=== PATIENT | male | born 1990 | race Caucasian/White ===

== ENCOUNTER 2016-08-30 05:08 | Day surgery (SDC) | payer OTHER ==
[~2016-08-30] VITALS: Ht 172.7 cm; Wt 120.2 kg
--- NOTE | ~2016-08-30 | O ---
[facility] [place] [address] OPERATIVE REPORT Name: TIMOTHYMAMTAJODY OLIVAS Room #: DEP [facility].#: [id number] Admission: 08/30/16 Attend Phys: Guero Bonner MD Discharge: 08/30/16 Date of : 86 Report #: [id number] THIS REPORT FOR: //name// CC: [facility] physician/PCP Guero Bonner DATE OF SERVICE: 08/30/2016 PREOPERATIVE DIAGNOSIS: Deviated nasal septum with nasal airway obstruction. POSTOPERATIVE DIAGNOSIS: Deviated nasal septum with nasal airway obstruction. OPERATIVE PROCEDURE: Nasal septoplasty. ANESTHESIA: General by laryngeal mask. DESCRIPTION OF PROCEDURE: The patient was taken to the operating room and placed in a supine position. General anesthesia was induced by laryngeal mask. Once adequate general anesthesia was obtained, local nasal anesthesia was induced by submucoperichondrial injection of 1% lidocaine with 1:100,000 epinephrine and topical application of cocaine solution. The patient was then draped in a sterile manner. The patient had a nasal septal deviation with the anterior cartilaginous septum protruding into the left nasal cavity and almost completely blocking that side of the nose. There was deviation along the floor and posteriorly to the right. A hemitransfixion incision was placed on the left side of the nose. The mucoperichondrium and mucoperiosteum was elevated off of the right side of the septum. The cartilage was incised along the floor, along the spur and then backwards towards the bony cartilaginous junction. A portion of cartilage and bone was removed from the midportion of the septum. The septal spur along the floor consisting of hypertrophic cartilage, which was removed as a long strip in the maxillary crest, which was rongeured and infractured. The anterior cartilaginous septum was then elevated off of the opposite side and a columellar pocket was created anteriorly. The anterior aspect of the cartilaginous septum was then fit into the columellar pocket. The hemitransfixion was closed with 4-0 chromic suture and a 4-0 plain mattress suture was placed as well. There was an excellent airway on both sides. The patient tolerated the procedure well. Blood loss was approximately 50 mL. The patient was then awoken to the recovery room in stable condition for postoperative monitoring. <ELECTRONICALLY SIGNED> By: Guero Bonner MD 09/13/16 1637 [id number] Guero Bonner MD /nt
--- NOTE | ~2016-08-30 | H ---
[facility] [place] [address] HISTORY AND PHYSICAL Name: ELMA AGUIRRE Room #: 150-10 [facility] M.R.#: [id number] Admission: 08/30/16 Attend Phys: Guero Bonner MD Discharge: Date of : 86 Report #: [id number] THIS REPORT FOR: //name// CC: [facility] physician/PCP Guero Bonner DATE OF SERVICE: 08/30/2016 HISTORY OF PRESENT ILLNESS: The patient has nasal airway obstruction and a deviated nasal septum. He has great difficulty breathing through his nose and has a lot of postnasal drainage. He has also had a feeling that there is something stuck in the back of his throat, most likely secondary to swelling from postnasal drainage. PAST MEDICAL HISTORY: Otherwise, significant for asthma. MEDICATION: Only medication is gabapentin. ALLERGIES: He has no known drug allergies. PHYSICAL EXAMINATION: He has a severely deviated nasal septum to the right side with the septum actually touching the lateral wall of the nose. The anterior cartilaginous septum protrudes into the cavity on the left and actually pushes the nasal dorsum over to the left as well. It appears as though the cartilages are lifted upward into the nasal tip. ASSESSMENT: Severely deviated nasal septum with nasal airway obstruction, this may be contributing to obstructive sleep apnea. PLAN: Nasal septoplasty. <ELECTRONICALLY SIGNED> By: Guero Bonner MD 08/30/16 0819 [id number] Guero Bonner MD /donell
[~2016-08-30 05:08] MED LIST: ALBUTEROL2.5 MG/0.5 INH; DOXEPIN 50MG CA50 MG PO; NEURONTIN 300300 M1 PO; NORCO 5-325 TA1 EACH PO
[2016-08-30 08:15] VITALS: BP 140/92
[2016-08-30] MEDS ORDERED: KEFLEX500 MG PO (09:42)
[2016-08-30] MEDS ORDERED: HYDROCODONE-APA1 TA1 PO (09:42)
== END 2016-08-30 10:40 | disposition home or self-care (01) ==
LOC: TBA 05:08 → OR 05:08
DX: J34.2 Deviated nasal septum (principal); J98.8 Other specified respiratory disorders; J45.909 Unspecified asthma, uncomplicated; F41.8 Other specified anxiety disorders; F17.210 Nicotine dependence, cigarettes, uncomplicated
CPT/HCPCS: 50010; 50101; 50386; 50398; 56524; 56528; 62110; 62900; 64037; 70005